=== PATIENT | male | born 1970 | race Caucasian/White ===

== ENCOUNTER 2016-07-17 17:56 | Inpatient (IN) | payer MEDICAID ==
[~2016-07-17] VITALS: Ht 170.2 cm; Wt 84.4 kg
[2016-07-17 17:58] VITALS: BP 113/61; PULSE 95; RESP 17; TEMP 98.1; O2SAT 97
--- NOTE | 2016-07-17 17:58 | NUR ---
Patient to ER bed 3 to gown for evaluation. Side rails up. Report given to Uma RAVI.
--- NOTE | 2016-07-17 17:59 | NUR ---
Seizure precautions in place. Seizure pads applied to gurney. Side rails up.
--- NOTE | 2016-07-17 18:10 | NUR ---
Pt brought by friend, Meghann&Ox4, pt states he trip and fell on saturday since than he has headache , today he was told he lost conciousness (possible seizure),not taking meds at home,skin pink and warm, cap refill <3, VSS, unsteady gait, MD aware.
--- NOTE | 2016-07-17 18:10 | NUR ---
Dr Ruffin at bedside examining patient
[2016-07-17 18:36] LABS: HEMATOCRIT 42.8 % (36-54); HEMOGLOBIN 14.5 g/dL (14.0-18.0); MEAN CORPUSCULAR HEMOGLOBIN 31 pg (27-31); MEAN CORPUSCULAR HGB CONC 34 % (32-36); MEAN CORPUSCULAR VOLUME 90 fL (79.0-98.0); PLATELET COUNT (AUTO) 186 K/uL (130-430); RED BLOOD CELL COUNT(AUTO) 4.76 MIL/uL (4.2-6.2); RED CELL DISTRIBUTION WIDTH 11.9 % (9.0-15.0); WHITE BLOOD COUNT (AUTO) 23.8 K/uL (4.8-10.8)
[2016-07-17 18:44] LABS: ANION GAP 9 (5-15); CALCIUM 8.1 mg/dL (8.4-11.0); CHLORIDE 95 mmol/L (98-107); CREATININE 1.69 mg/dL (0.55-1.30); GLUCOSE 287 mg/dL (70-99); POTASSIUM 3.5 mmol/L (3.5-5.1); SODIUM SERUM 130 mmol/L (136-145); UREA NITROGEN, BLOOD 21 mg/dL (8-21)
[2016-07-17 18:47] LABS: BILIRUBIN,URINE 3+ (NEGATIVE); BLOOD, URINE 2+ (NEGATIVE); CLARITY/URINE HAZY (CLEAR); GLUCOSE,URINE TRACE (NEGATIVE); KETONES,URINE 1+ (NEGATIVE); LEUKOCYTE ESTERASE ,URINE TRACE (NEGATIVE); NITRITE, URINE POSITIVE (NEGATIVE); PROTEIN URINE 2+ (NEGATIVE)
[2016-07-17 18:47] LABS: GFR AFRICAN AMERICAN 56 mL/min (>90)
[2016-07-17 18:49] LABS: ALANINE AMINOTRANSFERASE 45 U/L (12-78); ALBUMIN 3.4 g/dL (3.4-4.8); ASPARTATE AMINOTRANSFERASE 44 U/L (10-37); TOTAL BILIRUBIN 3.1 mg/dL (0.0-1.0); TOTAL PROTEIN, SERUM 7.2 g/dL (6.4-8.3)
[2016-07-17 18:49] LABS: COLOR,URINE ORANGE (YELLOW)
[2016-07-17 18:51] LABS: ACETAMINOPHEN 11 ug/mL (1-30); ALCOHOL, BLOOD < 3 mg/dL (<10); SALICYLATE < 1 mg/dL (3-30)
[2016-07-17 18:59] LABS: ATYPICAL LYMPHOCYTES % 0 % (0-0); BAND % (MANUAL) 16 % (0-6); BASOPHILS % (MANUAL) 0 % (0-2); EOSINOPHILS % (MANUAL) 0 % (0-7); LYMPHOCYTES % (MANUAL) 1 % (20-46); MONOCYTES % (MANUAL) 1 % (0-11)
[2016-07-17] MEDS ORDERED: NACL 0.9% 1,000 ML IV ONE (19:00)
[2016-07-17 19:01] LABS: BACTERIA,URINE MODERATE /HPF (None Seen)
[2016-07-17 19:02] LABS: FINE GRANULAR CASTS,URINE 0-10 /LPF (None Seen); HYALINE CASTS, URINE 0-10 /LPF (None Seen); MUCUS,URINE 2+ /LPF (None Seen)
[2016-07-17 19:04] LABS: METHAMPHETAMINES SCREEN,URINE POSITIVE (NEG <=500); OPIATE, URINE POSITIVE (NEG <=100); URINE AMPHETAMINE POSITIVE (NEG <=500)
[2016-07-17 19:05] LABS: BARBITURATE, URINE NEGATIVE (NEG <=200); BENZODIAZEPINE, URINE NEGATIVE (NEG <=150); CANNABINOID, URINE NEGATIVE (NEG <=50); COCAINE, URINE NEGATIVE (NEG <=150); PHENCYCLIDINE SCREEN,URINE NEGATIVE (NEG <=25); UR TRICYCLIC ANTIDEPRESSANTS NEGATIVE (NEG <=300); URINE METHADONE NEGATIVE (NEG <=200); URINE OXYCODONE SCREEN NEGATIVE (NEG <=100); URINE PROPOXYPHENE SCREEN NEGATIVE (NEG <=300)
--- NOTE | 2016-07-17 19:55 | NUR ---
Patient will be admitted to care of Dr Zayas. Admitted to Medsurg unit. Will go to room 120B. Belongings list completed. Summary report printed. Report given to Claudine Schreiber
[2016-07-17] MEDS ORDERED: cefTRIAXone 1 GM IVPB PREMIX 50 ML IV ONE (20:00)
[2016-07-17] MEDS ORDERED: ACETAMINOPHEN 325 MG TABLET PO PRN (20:45)
[2016-07-17] MEDS ORDERED: LORazepam 2 MG/ML VIAL IVP PRN (20:45)
[2016-07-17] MEDS ORDERED: DEXTROSE 50% JECT 50 ML DISP.SYRIN IVP PRN (20:45)
--- NOTE | 2016-07-17 20:53 | NUR ---
ADMISSION NOTE Received patient from ER via gurney. Patient admitted with diagnosis of [place]set SZ. Patient is awake, alert, oriented X 4. Patient oriented to hospital room, call light, toileting, pain management and safety-teach back done. Patient informed that Claudine will be his nurse and that their room number is 120B. Personal belongings checked and Belongings List documented. Call light within reach.
--- NOTE | 2016-07-17 20:55 | NUR ---
CONSULTATION PAGED REASON FOR CONSULTATION:SEIZURES WAS CONSULT CALLED?Y PERSON WHO WAS NOTIFIED:BRIDGET CONSULTING PHYSICIAN:DARÍO MOREIRA MOTOR HOTEL MANAGER SPECIALTY:NEURO MOTOR HOTEL MANAGER PHONE NUMBER:[phone]
--- NOTE | 2016-07-17 20:55 | NUR ---
INITIAL NOTE Patient resting on the bed. AO x4. Denied of pain. Respiration even and unlabored noted. No acute distress. Skin warm and dry to touch. IV intact to RFA. no redness, no swelling. Friend at bedside. Skin assessment done, skin intact, no skin break down, tattoo on bilateral lower legs, bilateral upper extremities, and anterior upper body. Discussed the safety issue, use call light when need help, and plan of care, verbally understanding. Safety measure maintained. Bed in low position, bed alarm on, padded side rails up. Call light within reached. Will continue to monitor.
[2016-07-17 21:23] VITALS: BP 110/67; PULSE 88; RESP 18; TEMP 98.7; O2SAT 98
[2016-07-17] MEDS: D5NS 1,000 ML IV SCH (21:58)
--- NOTE | 2016-07-17 22:23 | NUR ---
PAGED PAGED STEPHEN GOODMAN AT [phone] SPOKE WITH BETHANY.
[2016-07-17] MEDS: PIPERACILLIN/TAZO 3.375/DEX-IS 50 ML IV SCH (22:30)
--- NOTE | 2016-07-17 22:38 | NUR ---
PATIENT C/O CHILL Patient c/o chill, rjqg=723.8. Cooling measure provided. Patient also c/o on and off chest pain. B/P=123/84, O2 sat 97%RA, no acute distress. No seizure activity noted at this time. Friend at bedside. Call light within reached. Called Dr. Martin. Will continue to monitor.
--- NOTE | 2016-07-17 22:42 | NUR ---
INFORMED STEPHEN BRITTON CHANGED CONDITION OF THE PATIENT Informed Dr. Martin patient with diwn=552.8, only Tylenol order for pain. MD ordered Zosyn 3.375gm IVPB Q6hr and Tylenol for fever. Order read back and okay for MD. Also informed Dr. Martin patient c/o on and off chest pain, asked if he wants to order something for chest pain. MD state"just monitor." Informed patient forgot to tell ER nurse or doctor for the left ankle swollen due to fall. MD stated "Thank you.n Just monitor."
[2016-07-17] MEDS: levETIRAcetam 500 MG in NS 100 ML IV SCH (22:44)
[2016-07-17 22:45] VITALS: BP 123/84; PULSE 103; RESP 20; TEMP 101.8; O2SAT 97
[2016-07-17] MEDS ORDERED: PIPERACILLIN/TAZOBACTAM 3.375 GM/VIAL (ZOSYN) IV ONE (22:48)
[2016-07-17] MEDS: ACETAMINOPHEN 325 MG TABLET PO PRN (22:48)
--- NOTE | 2016-07-17 23:45 | NUR ---
RECHECKED TEMPERATURE Patient' egfo=171.0 at this time. Cooling measure maintained. No acute distress. Denied of chest pain. Safety measure maintained. Call light within reached. Bed in low position, padded side rails up, bed alarm on. Will continue to monitor.
[2016-07-18] MEDS: INSULIN REGULAR, HUMAN 100 UNITS/ML, 10 ML VIAL (novoLIN R) SUBCUT PRN ×5 (00:01→23:52)
[2016-07-18 00:07] VITALS: BP 116/69; PULSE 106; RESP 20; TEMP 100.7
--- NOTE | 2016-07-18 01:10 | NUR ---
ROUND Patient resting on the bed with eyes closed. No acute distress. Respiration even and unlabored noted. Kgzs=067.2, cooling measure maintained. Call light within reached. Safety measure maintained. Continue to monitor.
--- NOTE | 2016-07-18 03:05 | NUR ---
ROUND Patient resting on the bed with eyes closed. Respiration even and unlabored. No acute distress. Temp=99.6, cooling measure maintained. Safety measure maintained. Call light within reached. Continue to monitor.
[2016-07-18 04:18] VITALS: BP 103/49; PULSE 97; RESP 17; TEMP 100.3; O2SAT 98
--- NOTE | 2016-07-18 04:40 | NUR ---
ROUND Patient resting on the bed with eyes closed. No acute distress. Temp=99.2, cooling measure maintained. Safety measure maintained. Call light within reached. Continue to monitor.
[2016-07-18] MEDS: ACETAMINOPHEN 325 MG TABLET PO PRN ×3 (05:50→20:33)
--- NOTE | 2016-07-18 05:50 | NUR ---
TYLENOL GIVEN Patient c/o left ankle pain 07/20, Tylenol 650mg PO given as ordered. No acute distress. Call light within reached. Bed in low position, padded side rails up, bed alarm on. Continue to monitor.
[2016-07-18] MEDS: PIPERACILLIN/TAZO 3.375/DEX-IS 50 ML IV SCH ×3 (05:53→12:19)
[2016-07-18 06:33] LABS: HEMATOCRIT 40.4 % (36-54); HEMOGLOBIN 13.5 g/dL (14.0-18.0); MEAN CORPUSCULAR HEMOGLOBIN 31 pg (27-31); MEAN CORPUSCULAR HGB CONC 34 % (32-36); MEAN CORPUSCULAR VOLUME 91 fL (79.0-98.0); PLATELET COUNT (AUTO) 159 K/uL (130-430); RED BLOOD CELL COUNT(AUTO) 4.44 MIL/uL (4.2-6.2); RED CELL DISTRIBUTION WIDTH 12.1 % (9.0-15.0); WHITE BLOOD COUNT (AUTO) 18.4 K/uL (4.8-10.8)
[2016-07-18 06:53] LABS: ALBUMIN 2.9 g/dL (3.4-4.8); CALCIUM 7.9 mg/dL (8.4-11.0); CREATININE 1.32 mg/dL (0.55-1.30); POTASSIUM 3.4 mmol/L (3.5-5.1); TOTAL BILIRUBIN 2.9 mg/dL (0.0-1.0); TOTAL PROTEIN, SERUM 6.6 g/dL (6.4-8.3)
--- NOTE | 2016-07-18 06:59 | NUR ---
CLOSING NOTE Patient resting on the bed. No acute distress. No seizure activity during shift. Temp=99.0. IV intact, no redness, no swelling. IVF infusing well. All need met. Hourly rounding during shift. Safety measure maintained. Call light within reached. Bed in low position, padded side rails up, bed alarm on. Will endorse to morning shift nurse.
--- NOTE | 2016-07-18 07:56 | NUR ---
WRONG ENTRY SHOULD BE RIGHT ANKLE, NOT LEFT ANKLE
--- NOTE | 2016-07-18 08:00 | NUR ---
am rounds: patient sleeping during rounds. ivf on going at right forearm intact. npo maintained. with bilateral side rails for seizure precaution.bed alarm on. safety measures rendered.
[2016-07-18 08:53] VITALS: BP 107/63; PULSE 87; RESP 19; TEMP 98.1; O2SAT 100
[2016-07-18] MEDS: levETIRAcetam 500 MG in NS 100 ML IV SCH ×2 (08:54→20:33)
[2016-07-18] MEDS: D5NS 1,000 ML IV SCH ×2 (09:07→23:38)
[2016-07-18 09:46] LABS: ATYPICAL LYMPHOCYTES % 0 % (0-0); BAND % (MANUAL) 21 % (0-6); BASOPHILS % (MANUAL) 0 % (0-2); EOSINOPHILS % (MANUAL) 0 % (0-7); LYMPHOCYTES % (MANUAL) 0 % (20-46); MONOCYTES % (MANUAL) 2 % (0-11); WBC MORPHOLOGY AUER RODS SEEN
--- NOTE | 2016-07-18 10:00 | NUR ---
rounds: maintained on npo. afebrile. no seizures noted.
--- NOTE | 2016-07-18 10:32 | NUR ---
CONSULT HEMATOLOGY KATI BRAXTON [phone] S/W RIMMA OFFICE @[id number]
--- NOTE | 2016-07-18 10:48 | NUR ---
CONSULT ID SEPSIS SR MAYDA [phone] S/W CEDRIC OFFICE @ [id number]
--- NOTE | 2016-07-18 12:00 | NUR ---
blood sugar: blood sugar taken,with insulin coverage given per sliding scale.
--- NOTE | 2016-07-18 12:38 | NUR ---
pain meds: c/o headache and due po tylenol given as ordered.
[2016-07-18 12:43] VITALS: BP 110/70; PULSE 66; RESP 18; TEMP 98.9; O2SAT 94
--- NOTE | 2016-07-18 14:24 | NUR ---
rounds: patient sleeping during rounds. stable.
[2016-07-18 16:23] VITALS: BP 114/73; PULSE 71; RESP 16; TEMP 97.8; O2SAT 93
[2016-07-18] MEDS: VANCOMYCIN HCL 1,250 MG in NS 250 ML IV SCH (17:33)
--- NOTE | 2016-07-18 17:44 | NUR ---
blood sugar: blood sugar taken,with insulin coverage given per sliding scale.
--- NOTE | 2016-07-18 18:15 | NUR ---
paged: spoke with dr chan operation shift supervisor for dr beltran and relayed results of right ankle x-ray,no new orders made. dr beltran to f/u in the morning per .
[2016-07-18] MEDS ORDERED: LIDOCAINE 1% 10 MG/ML, 20 ML MDV INJ ONE (18:30)
--- NOTE | 2016-07-18 18:30 | NUR ---
spinal tap: patient consented to spinal tap after dr jessika deleon explained the procedure.time out done at bedside. spinal tap done by dr chaudhary aseptically.se nichols assisted at the bedside.
--- NOTE | 2016-07-18 18:40 | NUR ---
spinal fluid: spinal fluid specimen sent to lab.
--- NOTE | 2016-07-18 19:00 | NUR ---
closing notes: patient stable. patient requested food and md ordered pt can have food after the spinal tap. no bleeding on the site. continue to monitor.
--- NOTE | 2016-07-18 19:30 | NUR ---
INITIAL NOTE Patient resting on the bed. AO x4. Denied of pain. Respiration even and unlabored noted. No acute distress. Skin warm and dry to touch. IV intact to RFA. no redness, no swelling, no drainage. On D5 NS at 100ml/hr, infusing well. Discussed the safety issue, use call light when need help, and plan of care, verbally understanding. Safety measure maintained. Bed in low position, bed alarm on, padded side rails up. Call light within reached. Will continue to monitor.
[2016-07-18 19:53] LABS: CSF APPEARANCE CLEAR (CLEAR); CSF COLOR COLORLESS (COLORLESS); CSF VOLUME 5.5 mL
[2016-07-18 19:54] LABS: CSF GLUCOSE 108 mg/dL (40-70); CSF PROTEIN 42 mg/dL (15-45); CSF TUBE NUMBER 1
[2016-07-18 19:55] LABS: CSF RED BLOOD CELL COUNT 117 /uL (0-0); CSF WHITE BLOOD CELL COUNT 47 /uL (0-5)
[2016-07-18 20:00] VITALS: BP 126/69; PULSE 88; RESP 18; TEMP 100.2; O2SAT 97
[2016-07-18 20:11] LABS: CSF LYMPHOCYTES 1 % (40-60); CSF MONOCYTES 4 % (15-45); CSF NEUTROPHILS 85 % (0-6)
--- NOTE | 2016-07-18 20:33 | NUR ---
TYLENOL GIVEN Tylenol 650mg PO given as order for oobp=344.2 and patient c/o headache 07/20. No acute distress. Cooling measure maintained. Call light within reached. Safety measure maintained. Bed in low position, bed alarm on, padded side rails up. Will continue to monitor.
[2016-07-18] MEDS: cefTRIAXone 1 GM in D5W 50 ML IV SCH (21:18)
--- NOTE | 2016-07-18 22:40 | NUR ---
PATIENT REQUESTED TO CLOSE THE DOOR Per patient requested to close the door. Instructed patient have to call for help when get out of bed. Patient stated "I promise I will call when I get out of bed and not to get out by myself." Safety measure maintained. Bed alarm on, bed in low position, padded side rails up. Continue to monitor.
--- NOTE | 2016-07-18 23:05 | NUR ---
REPORTED THE RESULT OF CSF TO DARÍO GARLAND Reported the result of CSF for gram stain , no organism seen, white blood cells 2+. MD asked the WBC and culture result, told MD still pending. MD with no new order at this time.
--- NOTE | 2016-07-18 23:15 | NUR ---
ROUND Patient resting on the bed. No acute distress. Temp=98.8 at this time. Safety measure maintained. Call light within reached. Continue to monitor.
--- NOTE | 2016-07-19 01:10 | NUR ---
ROUND Patient sleeping comfortable. No acute distress. Respiration even and unlabored. Call light within reached. Safety measure maintained. Will continue to monitor.
[2016-07-19 01:19] VITALS: BP 118/68; PULSE 85; RESP 16; TEMP 98.8; O2SAT 98
--- NOTE | 2016-07-19 03:15 | NUR ---
ROUND Patient sleeping comfortable. No acute distress. Respiration even and unlabored. Call light within reached. Safety measure maintained. Bed in low position, bed alarm on, padded side rails up. Will continue to monitor.
[2016-07-19 04:52] VITALS: BP 128/75; PULSE 76; RESP 18; TEMP 100.3; O2SAT 100
[2016-07-19] MEDS: VANCOMYCIN HCL 1,250 MG in NS 250 ML IV SCH ×2 (06:09→17:33)
[2016-07-19] MEDS: INSULIN REGULAR, HUMAN 100 UNITS/ML, 10 ML VIAL (novoLIN R) SUBCUT PRN ×3 (06:17→17:34)
--- NOTE | 2016-07-19 07:02 | NUR ---
CLOSING NOTE Patient resting on the bed. No acute distress. No seizure activity during shift. IV intact, no redness, no swelling. IVF infusing well. All need met. Hourly rounding during shift. Safety measure maintained. Call light within reached. Bed in low position, padded side rails up, bed alarm on. Will endorse to morning shift nurse.
[2016-07-19 08:00] VITALS: BP 100/68; PULSE 74; RESP 17; TEMP 98.9; O2SAT 98
--- NOTE | 2016-07-19 08:00 | NUR ---
INITIAL NOTES PT IN BED AWAKE, ALERT AND ORIENTED. COMPLAIN OF HEADACHE. WILL MEDICATE. RT ANKLE IS SWOLLEN. IVF INFUSING WELL. AMBULATE TO THE BATHROOM WITH ASSISTANCE. FALL PRECAUTION OBSERVED. ENC. TO CALL AT ALL TIMES. PT VERNALIZE UNDERSTANDING. CALL LIGHT IN REACH. WILL MONITOR.
[2016-07-19] MEDS: ACETAMINOPHEN/CODEINE 300 MG-30 MG TABLET PO PRN ×2 (08:31→18:00)
[2016-07-19] MEDS: levETIRAcetam 500 MG in NS 100 ML IV SCH ×2 (08:32→22:26)
--- NOTE | 2016-07-19 10:00 | NUR ---
assisted to the bathroom and voided. no distress noted. family at bedside. still complaining of headache.
[2016-07-19 12:00] VITALS: BP 120/76; PULSE 84; RESP 16; TEMP 98.2; O2SAT 99
--- NOTE | 2016-07-19 12:00 | NUR ---
ROUNDS EATING LUNCH. FAMILY AT BEDSIDE. HEADACHE BETTER PER PT. DENIES ANY SEIZURE ACTIVITY
[2016-07-19] MEDS: D5NS 1,000 ML IV SCH ×2 (14:37→14:38)
[2016-07-19 16:00] VITALS: BP 127/74; PULSE 74; RESP 17; TEMP 98.1; O2SAT 100
--- NOTE | 2016-07-19 16:14 | NUR ---
rounds assisted to he bathroom. has slight pain at the back of his neck. pain tolerable per pt. enc. to call if pain med is needed, pt verbalize understanding. v/s stable. afebrile.
--- NOTE | 2016-07-19 18:30 | NUR ---
Patient denies any discomfort or headache at this time,friend at bedside .Ate dinner with fair appetite.
--- NOTE | 2016-07-19 18:33 | NUR ---
NOTES EATING DINNER, FAMILY AT BEDSIDE. COMPLAIN OF HEADACHE. MEDICATED WITH TYLENOL WITH CODEINE EARLIER. WILL RE ASSESS. ENC. TO CALL FOR HELP AT ALL TIMES AARON WHEN GETTING OUT OF BED. PT VERBALIZE UNDERSTANDING. NEEDS ATTENDED. WILL ENDORSE
[2016-07-19 20:00] VITALS: BP 127/74; PULSE 69; RESP 18; TEMP 98.6
--- NOTE | 2016-07-19 20:00 | NUR ---
2000 STARTING NOTE SECURITY PROGRAM MANAGER Patient in bed resting comfortably. His friend is at the bed side. He states his pain is 5/10. The nurse explains that his pain medication is not due yet. No other S/S of distress noted. Fall precautions in place. Report received from the day shift nurse.
[2016-07-19] MEDS: cefTRIAXone 1 GM in D5W 50 ML IV SCH (21:00)
--- NOTE | 2016-07-19 22:00 | NUR ---
2200 ROUNDS Patient in bed sleeping. No S/S of any distress noted, no pain. Fall precautions in place.
[2016-07-20] VITALS (7 sets, daily range): BP systolic 107–147; BP diastolic 62–87; PULSE 57–71; RESP 15–18; TEMP 96–98.6; O2SAT 96–99; Ht 170.2 cm; Wt 84.4 kg
--- NOTE | 2016-07-20 | NUR ---
0000 ROUNDS Patient in bed sleeping. The nurse woke him to take his blood sugar. BS level is 201, 4 units Novolin R administered. No S/S of distress or pain noted. Bed in low position, call light within reach.
--- NOTE | 2016-07-20 02:00 | NUR ---
0200 ROUNDS Patient in bed sleeping. No S/S of any distress noted, nor pain. Fall precautions in place.
--- NOTE | 2016-07-20 04:00 | NUR ---
0400 ROUNDS Patient in bed sleeping. No signs of respiratory distress, no seizure activity nor pain. Bed in low position, call light within reach.
[2016-07-20] MEDS: VANCOMYCIN HCL 1,250 MG in NS 250 ML IV SCH ×2 (05:31→20:20)
[2016-07-20] MEDS: INSULIN REGULAR, HUMAN 100 UNITS/ML, 10 ML VIAL (novoLIN R) SUBCUT PRN ×3 (05:36→23:30)
[2016-07-20] MEDS: D5NS 1,000 ML IV SCH ×3 (05:45→22:12)
[2016-07-20] MEDS: ACETAMINOPHEN/CODEINE 300 MG-30 MG TABLET PO PRN ×3 (06:08→17:27)
--- NOTE | 2016-07-20 07:30 | NUR ---
rn notes: patient is aaox 4, afebrile. vss stable. lungs bilaterally clear. abdomen soft and non distended. has iv access on the rt forearm #20. with iv fluids of D5ns at 100cc/hr infusing on well. call lights within reach. safety measures maintained. assists on adls. informed patient to call for assistance.
--- NOTE | 2016-07-20 07:57 | NUR ---
FINAL NOTE - MARINE SERVICE STATION ATTENDANT Patient in bed resting. Patient still nauseous and in pain despite the pain medication PRN (Tylenol w/Codeine) administered around 6 am. No other distress noted. Fall precautions in place. Report given to the day shift nurse Daniela RAVI. The nurse communicated to Daniela about the need of Zofran PRN for nausea since now the patient does not have any PRN medications for nausea/vomiting. Patient's needs met throughout the maintenance supervisor 2nd shift.
--- NOTE | 2016-07-20 08:04 | NUR ---
CALLED ATTENDING MD DR VICK, RE: MEDS FOR N/V. SPOKE TO GEORGI
[2016-07-20] MEDS: levETIRAcetam 500 MG in NS 100 ML IV SCH ×2 (09:39→22:17)
--- NOTE | 2016-07-20 09:40 | NUR ---
due medication given as ordered. keppra iv given at this time. patient said no nausea or vomitting noted. still with headache but its okay. explained to the patient, not due yet for pain meds.
[2016-07-20] MEDS: ONDANSETRON HCL 4 MG/2 ML VIAL IVP PRN ×2 (09:59→17:38)
--- NOTE | 2016-07-20 11:08 | NUR ---
CALLED [facility], DR OHARA, RE: LUMBAR PUNCTURE RESULTS. SPOKE TO CEDRIC
[2016-07-20 14:10] LABS: BASOPHILS % (AUTO) 0.4 % (0.0-2.0); EOSINOPHILS # (AUTO) 0.1 K/uL (0.0-0.4); EOSINOPHILS % (AUTO) 0.7 % (0.0-4.0); HEMATOCRIT 35.8 % (36-54); HEMOGLOBIN 12.2 g/dL (14.0-18.0); LYMPHOCYTES # (AUTO) 1.4 K/uL (1.0-5.5); LYMPHOCYTES % (AUTO) 14.9 % (20.5-51.5); MEAN CORPUSCULAR HEMOGLOBIN 31 pg (27-31); MEAN CORPUSCULAR HGB CONC 34 % (32-36); MEAN CORPUSCULAR VOLUME 91 fL (79.0-98.0); MONOCYTES # (AUTO) 1.1 K/uL (0.0-1.0); MONOCYTES % (AUTO) 11.2 % (1.7-9.3); NEUTROPHILS % (AUTO) 72.8 % (40.0-70.0); PLATELET COUNT (AUTO) 127 K/uL (130-430); RED BLOOD CELL COUNT(AUTO) 3.95 MIL/uL (4.2-6.2); RED CELL DISTRIBUTION WIDTH 11.9 % (9.0-15.0); WHITE BLOOD COUNT (AUTO) 9.6 K/uL (4.8-10.8)
[2016-07-20 14:20] LABS: CALCIUM 8.3 mg/dL (8.4-11.0); CREATININE 0.87 mg/dL (0.55-1.30); POTASSIUM 3.9 mmol/L (3.5-5.1)
--- NOTE | 2016-07-20 14:48 | NUR ---
CALLED CARDIOLOGY CONSULT TO DR LINO, REl: R/O ENDOCARDITIS. SPOKE TO DMITRY
--- NOTE | 2016-07-20 16:00 | NUR ---
assisted to the bathroom had voided and had bowel movement at this time. needs assistance to the bathroom
--- NOTE | 2016-07-20 17:00 | NUR ---
Dr Castrejon covering for Dr Kinsey family coach called and informed the result of the 2 d echo. said will come to see the patient tomorrow.
--- NOTE | 2016-07-20 17:50 | NUR ---
complained of lots of headache. tylenol #3 given po. made comfortable. no dizziness noted.
--- NOTE | 2016-07-20 18:00 | NUR ---
latest bs is 190 mg/dl. coverage given at this time.
--- NOTE | 2016-07-20 19:30 | NUR ---
initial nursing notes: Patient is awake. Patient has IV fluid infusing on the right forearm IV access. Patient denies of having pain at this time.
--- NOTE | 2016-07-20 19:30 | NUR ---
sbar report given to incoming nurse Rk RAVI
--- NOTE | 2016-07-20 21:30 | NUR ---
nursing rounds: Patient watching television. Kept siderails padded and up X 3.
[2016-07-20] MEDS: cefTRIAXone 1 GM in D5W 50 ML IV SCH (23:12)
--- NOTE | 2016-07-20 23:30 | NUR ---
nursing rounds: Patient was talking to Dr. Kinsey. Patient's blood sugar was checked. Insulin coverage provided per sliding scale.
[2016-07-21] VITALS (7 sets, daily range): BP systolic 125–160; BP diastolic 59–74; PULSE 56–80; RESP 17–18; TEMP 97–99.3; O2SAT 92–99
--- NOTE | 2016-07-21 01:30 | NUR ---
nursing rounds: Patient is asleep in bed. Patient has no shortness of breath.
--- NOTE | 2016-07-21 03:30 | NUR ---
nursing rounds: Patient is sleeping in bed. Call light within patient's reach.
[2016-07-21] MEDS: VANCOMYCIN HCL 1,250 MG in NS 250 ML IV SCH ×2 (05:24→17:44)
[2016-07-21] MEDS: D5NS 1,000 ML IV SCH ×2 (05:25→10:56)
--- NOTE | 2016-07-21 05:30 | NUR ---
nursing rounds: Patient calmly resting in bed. Patient has no respiratory distress.
[2016-07-21] MEDS: INSULIN REGULAR, HUMAN 100 UNITS/ML, 10 ML VIAL (novoLIN R) SUBCUT PRN ×3 (06:33→17:46)
[2016-07-21] MEDS: ACETAMINOPHEN/CODEINE 300 MG-30 MG TABLET PO PRN (07:11)
--- NOTE | 2016-07-21 07:35 | NUR ---
rn notesL patient is aaox 4. very sleepy refused to be taken vitals signs at this time. said later. has iv access on the left hand #22 with D5Ns at 100cc/hr infusing on well. call lights within reach. safety measures maintained. on seizure precaution. padded side rails noted. bed in low position. informed patient to call for assistance.
--- NOTE | 2016-07-21 07:42 | NUR ---
closing nursing notes: Patient is awake, alert and oriented X 4. Patient is in no acute respiratory distress. No episodes of fall and no injuries throughout the shift superintendent caustic cresylate. Provided nursing report to incoming morning shift nurse, BREONNA Suarez, at patient's bedside.
--- NOTE | 2016-07-21 09:00 | NUR ---
refused to be bothered for now.
--- NOTE | 2016-07-21 09:40 | NUR ---
rounds made: patient said im okay. no distress noted. just feels very sleepy. no nausea nor vomitting noted
[2016-07-21] MEDS: levETIRAcetam 500 MG in NS 100 ML IV SCH ×2 (09:59→21:31)
--- NOTE | 2016-07-21 10:00 | NUR ---
due medication given as ordered. at this time. keppra iv infused
[2016-07-21] MEDS: ONDANSETRON HCL 4 MG/2 ML VIAL IVP PRN (10:56)
--- NOTE | 2016-07-21 12:00 | NUR ---
latest bs is 185mg/dl. coverage given at this time.
--- NOTE | 2016-07-21 14:00 | NUR ---
rounds: patient is asleep at this time. nor distress noted.
[2016-07-21] MEDS ORDERED: ONDANSETRON HCL 4 MG/2 ML VIAL IVP PRN (16:00)
--- NOTE | 2016-07-21 16:00 | NUR ---
patient is sleeping. no pain nor distress noted.
--- NOTE | 2016-07-21 17:40 | NUR ---
latest bs is 178mg/dl. coverage given at this time. patient is stable. no nausea nor vomitting noted.
--- NOTE | 2016-07-21 18:00 | NUR ---
Vancomycin iv antibiotic given. assists on adls. still eating dinner. requested the kitchen to bring chocolate ice cream.
--- NOTE | 2016-07-21 18:30 | NUR ---
patient has respiratory distress noted. no nausea nor vomitting noted. bed in low position. no fall nor injury noted for 12 hours shift. informed patient to call for assistance. hourly rounding done.
--- NOTE | 2016-07-21 19:35 | NUR ---
sbar report given to incoming nurse Marianne RAVI
--- NOTE | 2016-07-21 20:02 | NUR ---
Opening Note Report received from the day shift RN. Patient is in stable condition. Currently on seizure precautions. Seizure pads are in place. IV is on the LFA running D5NS@100ml/hr. Call light is within reach. Instructed to use it whenever in need of assistance.
--- NOTE | 2016-07-21 22:03 | NUR ---
Rounds Patient is in stable condition. No signs of distress noted. Call light is within reach. Bed alarm is on. Instructed to use call light whenever in need of assistance.
[2016-07-22] VITALS (7 sets, daily range): BP systolic 98–136; BP diastolic 51–78; PULSE 65–86; RESP 16–18; TEMP 97.8–101.6; O2SAT 97–99
[2016-07-22] MEDS: INSULIN REGULAR, HUMAN 100 UNITS/ML, 10 ML VIAL (novoLIN R) SUBCUT PRN ×4 (00:10→17:10)
[2016-07-22] MEDS: NAFCILLIN SODIUM 2 GM in NS 100 ML IV SCH ×4 (00:10→17:07)
--- NOTE | 2016-07-22 00:15 | NUR ---
Rounds Patient is currently sleeping in bed. Call light is within reach. Current blood sugar is 194. Will cover with 2 unit of regular insulin.
[2016-07-22] MEDS: traMADol HCL HCL 50 MG TABLET (ULTRAM) PO PRN (00:20)
--- NOTE | 2016-07-22 02:20 | NUR ---
Rounds Patient is currently resting in bed. Call light is within reach.
[2016-07-22] MEDS: ACETAMINOPHEN 325 MG TABLET PO PRN (03:23)
[2016-07-22] MEDS: D5NS 1,000 ML IV SCH ×3 (03:24→20:58)
--- NOTE | 2016-07-22 03:58 | NUR ---
Rounds Patient stated feeling very cold and was experiencing chills. Current temp is 102.4. Will medicated with Tylenol and reassess.
--- NOTE | 2016-07-22 06:13 | NUR ---
Closing Note Patient is in stable in stable condition. Current blood sugar is 190. Covered with 2 units of Regular insulin. IV is on the LFA running D5NS@100ml/hr. Call light is within reach. Instructed to use it whenever in need of assistance. Will give report to the oncoming nurse.
--- NOTE | 2016-07-22 07:30 | NUR ---
AM ROUNDS: No s/s of distress noted. Will continue to monitor.
[2016-07-22] MEDS: levETIRAcetam 500 MG in NS 100 ML IV SCH ×2 (08:14→20:58)
--- NOTE | 2016-07-22 10:12 | NUR ---
PATIENT RESTING: Patient resting quietly. No acute distress noted. Vital signs within normal range.
--- NOTE | 2016-07-22 12:18 | NUR ---
PATIENT RESTING: Patient resting quietly. No acute distress noted. Vital signs within normal range.
--- NOTE | 2016-07-22 14:10 | NUR ---
PATIENT RESTING: Patient resting quietly. No acute distress noted. Vital signs within normal range.
--- NOTE | 2016-07-22 16:05 | NUR ---
PATIENT RESTING: Patient resting quietly. No acute distress noted. Vital signs within normal range.
--- NOTE | 2016-07-22 18:00 | NUR ---
CLOSING NOTE: All needs met. No change in assessment. Will endorse to NOC shift nurse.
--- NOTE | 2016-07-22 20:00 | NUR ---
PM Round Pt awake alert oriented x 4. Clear speech. Breathing symmetrically, non labored breathing. educated to use call light for assistance. verbalized understanding. Pt educated regarding aura, verbalized understanding. IV on the right FA 20g, D5 NS 100ml/hr. patent. Safety precaution in place. Bed in the lowest positioned, locked. call light within reach. Will continue to monitor
[2016-07-23] VITALS (7 sets, daily range): BP systolic 108–131; BP diastolic 53–63; PULSE 62–92; RESP 16–18; TEMP 97.9–99.9; O2SAT 95–99
--- NOTE | 2016-07-23 | NUR ---
Rounds Pt eye closed. Awoken to light stimuli. Blood sugar level of 250mg/dL. appropriate coverage administered with another licensed nurse. Pt noted went back to sleep soon after. No distress noted by no facial grimacing noted. call light in reach
[2016-07-23] MEDS: NAFCILLIN SODIUM 2 GM in NS 100 ML IV SCH ×4 (00:26→17:56)
[2016-07-23] MEDS: INSULIN REGULAR, HUMAN 100 UNITS/ML, 10 ML VIAL (novoLIN R) SUBCUT PRN ×4 (00:42→17:57)
[2016-07-23] MEDS: traMADol HCL HCL 50 MG TABLET (ULTRAM) PO PRN ×3 (05:35→18:11)
--- NOTE | 2016-07-23 06:20 | NUR ---
Closing note Pt awake alert. Blood sugar level of 195mg/dL. Insulin administered per sliding scale by co-signed by another licensed nurse. Hourly rounds done throughout the shift. Comfort needs met throughout the shift. call light within reach. will endorse AM shift nurse via SBAR method to continue care. educated to use call light for assistance. verbalized understanding. call light in reach.
--- NOTE | 2016-07-23 08:00 | NUR ---
OPENING NOTE: RECEIVED REPORT FROM NIGHT NURSE. PATIENT IS RESTING COMFORTABLY IN BED. NO S/S OF DISTRESS OR SOB. PATIENT IS ALERT AND ORIENTED, ABLE TO EXPRESS NEEDS, AND ASK FOR ASSISTANCE. VITALS SIGNS WNL, ASSESSMENT COMPLETE. IV IS PATENT AND INFUSING. CALL LIGHT IN REACH, BED IN LOWEST POSITION, AND WILL CONTINUE TO MONITOR.
[2016-07-23] MEDS: levETIRAcetam 500 MG in NS 100 ML IV SCH ×2 (08:49→21:38)
--- NOTE | 2016-07-23 10:08 | NUR ---
NOTE: PATIENT IS RESTING COMFORTABLY IN BED. NO S/S OF DISTRESS OR SOB. PATIENT IS ALERT AND ORIENTED, ABLE TO EXPRESS NEEDS, AND ASK FOR ASSISTANCE. CALL LIGHT IN REACH, BED IN LOWEST POSITION, AND WILL CONTINUE TO MONITOR.
[2016-07-23] MEDS: PROMETHAZINE-DM 6.25 MG-15 MG/5 ML UDC PO PRN ×2 (12:47→21:53)
--- NOTE | 2016-07-23 15:33 | NUR ---
ANITA PLANNING Order to transfer to contracted hospital for LUCREC[facility]. Per Dr Martin needs LUCRECIA to r/o Endocarditis, transfer dx: Sepsis, R/O Endocarditis, Viral Meningitis. Called & spoke avi Ramirez @ [facility], ph [phone], & informed. States will work on transfer. Spoke w pt @ bedside, states aware or transfer for LUCRECIA discussed avi Barroso. Agreeable w any contracted hospital. Addendum: 07/23/16 at 1620 by Fabiana Peacock RN Called James @ [facility] to f/u on transfer, [facility] Dr [place] @ [facility] accepted pt waiting for room assignment. Informed leaving @ 1630, states will call nurse to give info, gave direct nsg station#. States to leave ambulance on will call, contracted ambulance: [facility] ph [phone], [facility] ph [phone], or [facility] ph [phone], ambulance auth #[id number]. If none of the ambulance companies can take pt then can use anyone & call & let her know which used. Called & ordered CD. Informed pt's nurse Norris. Updated pt @ bedside, states agreeable. Addendum: 07/23/16 at 1635 by Mara Gallo DP Ordered Radiology CD. Called [facility] [phone] unable to arrange, needs to go thru [facility]. Called [facility] [phone] spoke with Elizabeth who stated does no do BLS transports. Called [facility] spoke with Meenakshi who stated unable to handle hospital transports. Called [facility] [phone] spoke with Svitlana placed BLS transport on will call to [facility] auth#[id number]. Pending bed assignment.
[2016-07-23] MEDS: D5NS 1,000 ML IV SCH ×2 (18:12→21:35)
--- NOTE | 2016-07-23 18:55 | NUR ---
CLOSING NOTE: PATIENT IS RESTING COMFORTABLY IN BED. NO S/S OF DISTRESS OR SOB. PATIENT IS ALERT AND ORIENTED, ABLE TO EXPRESS NEEDS, AND ASK FOR ASSISTANCE. CALL LIGHT IN REACH, BED IN LOWEST POSITION, AND WILL GIVE REPORT TO NIGHT NURSE.
--- NOTE | 2016-07-23 19:35 | NUR ---
PM ASSESSMENT PT. A/OX4, VITAL SIGNS STABLE, NO DISTRESS NOTED, IV ACCESS ON RFA INFILTRATED, WILL RESTART IV LATER, PT. REPORTS NO SEIZURE ACTIVITY AT THIS TIME, SIDERAILS ARE PADDED. UPDATED WITH PLAN OF CARE, ENCOURAGED PT. TO USE CALL LIGHT FOR ASSISTANCE, CALL LIGHT WITHIN REACH, WILL CONTINUE TO MONITOR.
--- NOTE | 2016-07-23 20:00 | NUR ---
IV RESTART NEW IV RESTARTED ON L. WRIST 22G, NO S/S OF INFILTRATION, NOTED WITH GOOD BLOOD RETURN, SALINE LOCKED.
--- NOTE | 2016-07-23 20:45 | NUR ---
[facility] TRANSFER CALL RECEIVED CALL FROM [facility], BED IS NOW AVAILABLE IN ROOM 4103, 4TH FLOOR, MED-SURG UNIT. WILL CALL REPORT TO PHONE # [phone].
--- NOTE | 2016-07-23 21:00 | NUR ---
TRANSPORTATION TRANSPORTATION WAS SET UP WITH [facility] ON WILL CALL, ESTIMATED TIME OF ARRIVAL IS 2430, PT. UPDATED WITH PLAN OF CARE.
--- NOTE | 2016-07-23 21:10 | NUR ---
AMBULANCE PAGED CALLED [facility] AT [phone] SPOKE WITH VASILIY TO ARRANGE FOR AMBULANCE GRAIN PROCESSOR ETA WILL BE 0030 AM.
--- NOTE | 2016-07-23 21:30 | NUR ---
REPORT GIVEN REPORT GIVEN TO BREONNA GAINES OF [facility].
--- NOTE | 2016-07-23 22:30 | NUR ---
RN ROUNDS PT. RESTING QUIETLY, VITAL SIGNS STABLE, NO DISTRESS NOTED, NO S/S OF SEIZURE ACTIVITY, CALL LIGHT WITHIN REACH, WILL CONTINUE TO MONITOR.
--- NOTE | 2016-07-24 | NUR ---
ACCUCHECK BLOOD LONCE=930, 2 UNITS REGULAR INSULIN GIVEN ORDERED, WILL CONTINUE TO MONITOR.
[2016-07-24] MEDS: traMADol HCL HCL 50 MG TABLET (ULTRAM) PO PRN (00:01)
[2016-07-24] MEDS: NAFCILLIN SODIUM 2 GM in NS 100 ML IV SCH ×2 (00:01→05:56)
[2016-07-24] MEDS: INSULIN REGULAR, HUMAN 100 UNITS/ML, 10 ML VIAL (novoLIN R) SUBCUT PRN (00:04)
[2016-07-24 00:43] VITALS: BP 120/47; PULSE 73; RESP 18; TEMP 98.9; O2SAT 100
--- NOTE | 2016-07-24 00:58 | NUR ---
Ambulance transport follow-up called [facility], dialed to follow-up BLS transport to [facility]. s/w Svitlana, stated that there was a mix up regarding a location and Pt name. New ETA will be at 05:30.
--- NOTE | 2016-07-24 01:00 | NUR ---
DELAY IN TRANSFER BREONNA GAINES FROM [facility] NOTIFIED THAT AMBULANCE WILL NOT BE ABLE TO TRANSPORT PT. UNTIL 529 THIS MORNING.
--- NOTE | 2016-07-24 02:06 | NUR ---
ambulance transport follow[place]up [place] [facility] [place], stated that a later ETA will be placed at 06:45.
--- NOTE | 2016-07-24 02:09 | NUR ---
ambulance transport follow-up called [facility] ambulance, dialed . s/w Kb and placed a BLS transport for Pt to [facility] with an ETA at 05:30. called [facility], dialed [phone]. s/w Svitlana and asked her to cancel the 06:45 BLS transport that was placed.
[2016-07-24] MEDS: D5NS 1,000 ML IV SCH (02:45)
--- NOTE | 2016-07-24 03:00 | NUR ---
RN ROUNDS PT. RESTING QUIETLY, VITAL SIGNS STABLE, NO DISTRESS NOTED, DENIES PAIN, NO SEIZURE ACTIVITY NOTED AT THIS TIME, CALL LIGHT WITHIN REACH, WILL CONTINUE TO MONITOR.
[2016-07-24 04:45] VITALS: BP 116/44; PULSE 67; RESP 17; TEMP 99.1; O2SAT 97
--- NOTE | 2016-07-24 06:00 | NUR ---
DISCHARGE REPORT GIVEN TO [facility] FOR TRANSPORT TO [facility]. BELONGINGS CHECKED AND ACCOUNTED FOR, PT. TRANSFERRED SAFELY VIA GURNEY.
== END 2016-07-24 06:05 | disposition short-term general hospital (02) | DRG 720 ==
LOC: SED 17:56 → SMU 19:55
PROVIDERS: ADMIT Internal Medicine Hospice and Palliative Medicine; ATTEND Internal Medicine Hospice and Palliative Medicine
DX: A41.2 Sepsis due to unspecified staphylococcus (principal); I38 Endocarditis, valve unspecified; E11.65 Type 2 diabetes mellitus with hyperglycemia; A87.9 Viral meningitis, unspecified; E87.1 Hypo-osmolality and hyponatremia; E44.1 Mild protein-calorie malnutrition; N39.0 Urinary tract infection, site not specified; G40.909 Epilepsy, unspecified, not intractable, without status epilepticus; N28.9 Disorder of kidney and ureter, unspecified; F17.200 Nicotine dependence, unspecified, uncomplicated; F19.10 Other psychoactive substance abuse, uncomplicated; Z86.61 Personal history of infections of the central nervous system; Z90.49 Acquired absence of other specified parts of digestive tract; Z68.29 Body mass index [BMI] 29.0-29.9, adult
CPT/HCPCS: 36415; 70450-TC; 71010; 80048; 80053; 80307; 81000-TC; 82565-TC; 82947-TC; 82962; 83605; 83880; 84157-TC; 84484; 85007; 85025; 85027; 85048; 85730-TC; 87040-TC; 87070-TC; 87086; 87116; 87186-TC; 87205-TC; 89051-TC; 93005; 93306; 96361; 96365; 99285; G0480; G0481; G0482; J0696; J1815; J1953; J2405; J2543; J3370; J3490; J7030; J7042; J7050; J7060

== ENCOUNTER 2016-08-29 08:11 | Inpatient (IN) | payer MEDICAID ==
[2016-08-29] VITALS (7 sets, daily range): BP systolic 128–155
[~2016-08-29] VITALS: Ht 170.2 cm; Wt 88.9 kg
[2016-08-29 09:23] LABS: BASOPHILS # (AUTO) 0.1 K/uL (0.0-0.2); BASOPHILS % (AUTO) 0.7 % (0.0-2.0); EOSINOPHILS # (AUTO) 0.6 K/uL (0.0-0.4); HEMOGLOBIN 11.1 g/dL (14.0-18.0); LYMPHOCYTES # (AUTO) 1.2 K/uL (1.0-5.5); LYMPHOCYTES % (AUTO) 12.5 % (20.5-51.5); MEAN CORPUSCULAR HEMOGLOBIN 31 pg (27-31); MEAN CORPUSCULAR HGB CONC 34 % (32-36); MEAN CORPUSCULAR VOLUME 90 fL (79.0-98.0); MONOCYTES # (AUTO) 0.9 K/uL (0.0-1.0); MONOCYTES % (AUTO) 9.6 % (1.7-9.3); NEUTROPHILS # (AUTO) 6.6 K/uL (1.8-7.7); NEUTROPHILS % (AUTO) 71.2 % (40.0-70.0); PLATELET COUNT (AUTO) 238 K/uL (130-430); RED BLOOD CELL COUNT(AUTO) 3.65 MIL/uL (4.2-6.2); RED CELL DISTRIBUTION WIDTH 14.6 % (9.0-15.0); WHITE BLOOD COUNT (AUTO) 9.4 K/uL (4.8-10.8)
[2016-08-29 09:30] LABS: INR 1.1 (0.80-1.20)
[2016-08-29] MEDS ORDERED: FUROSEMIDE 40 MG/4 ML VIAL IVP ONE (09:30)
[2016-08-29] MEDS ORDERED: IPRATROPIUM BROM 0.5 MG/2.5 ML VIAL.NEB (ATROVENT) IH ONE (09:30)
[2016-08-29] MEDS ORDERED: ALBUTEROL SULFATE 0.083% 2.5 MG/3 ML VIAL.NEB IH ONE (09:30)
[2016-08-29 09:47] LABS: ABG TOTAL HEMOGLOBIN 11.8 G/dL (12.0-18.0); BLOOD GAS BASE EXCESS -0.1 mmol/L (-3.0-3.0); BLOOD GAS COHb% 0.7 % (0.5-1.5); BLOOD GAS HHB 7.3 % (0.0-6.0); BLOOD GAS PH 7.457 (7.350-7.450); BLOOD O2Hb% 91.7 % (94.0-97.0)
[2016-08-29 09:53] LABS: CALCIUM 8.8 mg/dL (8.4-11.0); CREATININE 0.97 mg/dL (0.55-1.30); POTASSIUM 3.7 mmol/L (3.5-5.1)
[2016-08-29 09:58] LABS: ALBUMIN 3.2 g/dL (3.4-4.8); TOTAL BILIRUBIN 1.3 mg/dL (0.0-1.0); TOTAL PROTEIN, SERUM 7.6 g/dL (6.4-8.3)
[2016-08-29 10:59] LABS: BILIRUBIN,URINE NEGATIVE (NEGATIVE); BLOOD, URINE NEGATIVE (NEGATIVE); CLARITY/URINE CLEAR (CLEAR); COLOR,URINE YELLOW (YELLOW); GLUCOSE,URINE NEGATIVE (NEGATIVE); KETONES,URINE NEGATIVE (NEGATIVE); LEUKOCYTE ESTERASE ,URINE NEGATIVE (NEGATIVE); NITRITE, URINE NEGATIVE (NEGATIVE); PROTEIN URINE NEGATIVE (NEGATIVE); UROBILINOGEN,URINE 0.2 (0.2-1.0)
[2016-08-29] MEDS ORDERED: IOHEXOL 100 ML IV ONE (12:56)
[2016-08-29] MEDS ORDERED: ACETAMINOPHEN 650 MG SUPP.RECT RC PRN (14:15)
[2016-08-29] MEDS ORDERED: CARVEDILOL 6.25 MG TABLET (COREG) PO ONE (14:15)
[2016-08-29] MEDS ORDERED: POTASSIUM CHLORIDE 20 MEQ TAB.PRT.SR PO ONE (14:30)
[2016-08-29] MEDS ORDERED: LISINOPRIL 5 MG TABLET PO ONE (14:30)
[2016-08-29] MEDS ORDERED: FUROSEMIDE 20 MG/2 ML VIAL IVP ONE (14:30)
[2016-08-29] MEDS ORDERED: LEVOFLOXACIN 500 MG/D5W 100 ML IV ONE (15:00)
[2016-08-29] MEDS: IPRATROPIUM/ALBUTEROL SULFATE 3 ML AMPUL.NEB INH SCH ×3 (15:49→23:40)
[2016-08-29] MEDS: VANCOMYCIN HCL 1,500 MG in NS 250 ML IV SCH (20:53)
[2016-08-29] MEDS: FUROSEMIDE 20 MG/2 ML VIAL IVP SCH (20:54)
[2016-08-29] MEDS: CARVEDILOL 6.25 MG TABLET (COREG) PO SCH (20:55)
[2016-08-29] MEDS: LACTOBACILLUS RHAMNOSUS GG 1 CAP CAPSULE PO SCH (20:55)
[2016-08-29] MEDS: POTASSIUM CHLORIDE 20 MEQ TAB.PRT.SR PO SCH (20:55)
[2016-08-29] MEDS: ENOXAPARIN SODIUM 40 MG/0.4 ML SYRINGE SUBCUT SCH (20:56)
[2016-08-29] MEDS: guaiFENesin ER 600 MG TAB PO SCH (23:06)
[2016-08-30] VITALS (7 sets, daily range): BP systolic 104–145
[2016-08-30] MEDS: IPRATROPIUM/ALBUTEROL SULFATE 3 ML AMPUL.NEB INH SCH ×6 (03:30→23:52)
[2016-08-30] MEDS: VANCOMYCIN HCL 1,500 MG in NS 250 ML IV SCH ×2 (06:15→18:20)
[2016-08-30 07:16] LABS: BASOPHILS % (AUTO) 0.4 % (0.0-2.0); EOSINOPHILS # (AUTO) 0.7 K/uL (0.0-0.4); EOSINOPHILS % (AUTO) 7.3 % (0.0-4.0); HEMATOCRIT 34.9 % (36-54); HEMOGLOBIN 11.6 g/dL (14.0-18.0); LYMPHOCYTES # (AUTO) 1.6 K/uL (1.0-5.5); LYMPHOCYTES % (AUTO) 17.3 % (20.5-51.5); MEAN CORPUSCULAR HEMOGLOBIN 31 pg (27-31); MEAN CORPUSCULAR HGB CONC 33 % (32-36); MEAN CORPUSCULAR VOLUME 92 fL (79.0-98.0); MONOCYTES % (AUTO) 10.8 % (1.7-9.3); NEUTROPHILS # (AUTO) 5.9 K/uL (1.8-7.7); NEUTROPHILS % (AUTO) 64.2 % (40.0-70.0); PLATELET COUNT (AUTO) 237 K/uL (130-430); RED BLOOD CELL COUNT(AUTO) 3.79 MIL/uL (4.2-6.2); RED CELL DISTRIBUTION WIDTH 14.7 % (9.0-15.0); WHITE BLOOD COUNT (AUTO) 9.2 K/uL (4.8-10.8)
[2016-08-30 07:54] LABS: ALBUMIN 3.2 g/dL (3.4-4.8); CALCIUM 9.1 mg/dL (8.4-11.0); CREATININE 1.2 mg/dL (0.55-1.30); FREE T4 (FREE THYROXINE) 0.9 ng/dL (0.6-1.6); POTASSIUM 4.2 mmol/L (3.5-5.1); THYROID STIMULATING HORMONE 2.4 uIu/mL (0.34-4.82); TOTAL BILIRUBIN 1.3 mg/dL (0.0-1.0); TOTAL PROTEIN, SERUM 7.7 g/dL (6.4-8.3)
[2016-08-30] MEDS: guaiFENesin ER 600 MG TAB PO SCH ×2 (08:17→20:50)
[2016-08-30] MEDS: LACTOBACILLUS RHAMNOSUS GG 1 CAP CAPSULE PO SCH ×2 (08:17→20:50)
[2016-08-30] MEDS: PROMETHAZINE-DM 6.25 MG-15 MG/5 ML UDC PO PRN (08:17)
[2016-08-30] MEDS: POTASSIUM CHLORIDE 20 MEQ TAB.PRT.SR PO SCH ×2 (08:18→20:50)
[2016-08-30] MEDS: LISINOPRIL 5 MG TABLET PO SCH (08:18)
[2016-08-30] MEDS: CARVEDILOL 6.25 MG TABLET (COREG) PO SCH ×2 (08:18→20:51)
[2016-08-30] MEDS: FUROSEMIDE 20 MG/2 ML VIAL IVP SCH ×2 (08:19→20:52)
[2016-08-30] MEDS: LEVOFLOXACIN 500 MG/D5W 100 ML IV SCH (08:20)
[2016-08-30] MEDS ORDERED: ACETAMINOPHEN 325 MG TABLET PO PRN (17:15)
[2016-08-30] MEDS: ENOXAPARIN SODIUM 40 MG/0.4 ML SYRINGE SUBCUT SCH (20:51)
[2016-08-31] MEDS: IPRATROPIUM/ALBUTEROL SULFATE 3 ML AMPUL.NEB INH SCH ×5 (03:57→23:07)
[2016-08-31 04:08] VITALS: BP_SYST 99
[2016-08-31] MEDS: VANCOMYCIN HCL 1,500 MG in NS 250 ML IV SCH ×2 (06:07→20:03)
[2016-08-31] MEDS: PROMETHAZINE-DM 6.25 MG-15 MG/5 ML UDC PO PRN (06:11)
[2016-08-31] MEDS: FUROSEMIDE 20 MG/2 ML VIAL IVP SCH ×2 (09:10→20:55)
[2016-08-31] MEDS: guaiFENesin ER 600 MG TAB PO SCH ×2 (09:11→20:54)
[2016-08-31] MEDS: POTASSIUM CHLORIDE 20 MEQ TAB.PRT.SR PO SCH ×2 (09:11→20:55)
[2016-08-31] MEDS: CARVEDILOL 6.25 MG TABLET (COREG) PO SCH ×2 (09:11→20:55)
[2016-08-31] MEDS: LACTOBACILLUS RHAMNOSUS GG 1 CAP CAPSULE PO SCH ×2 (09:12→20:54)
[2016-08-31] MEDS: LEVOFLOXACIN 500 MG/D5W 100 ML IV SCH (09:12)
[2016-08-31] MEDS: traMADol HCL HCL 50 MG TABLET (ULTRAM) PO PRN (09:12)
[2016-08-31 09:13] VITALS: BP_SYST 134
[2016-08-31] MEDS: LISINOPRIL 5 MG TABLET PO SCH (09:13)
[2016-08-31 11:39] VITALS: BP_SYST 118
[2016-08-31 15:31] VITALS: BP_SYST 126
[2016-08-31 19:35] VITALS: BP_SYST 152
[2016-08-31] MEDS: ENOXAPARIN SODIUM 40 MG/0.4 ML SYRINGE SUBCUT SCH (20:56)
[2016-09-01] VITALS (7 sets, daily range): BP systolic 102–135
[2016-09-01] MEDS: traMADol HCL HCL 50 MG TABLET (ULTRAM) PO PRN ×2 (02:39→09:45)
[2016-09-01] MEDS: IPRATROPIUM/ALBUTEROL SULFATE 3 ML AMPUL.NEB INH SCH ×6 (03:45→23:00)
[2016-09-01] MEDS: VANCOMYCIN HCL 1,500 MG in NS 250 ML IV SCH ×2 (06:51→19:33)
[2016-09-01 06:55] LABS: BASOPHILS # (AUTO) 0.1 K/uL (0.0-0.2); BASOPHILS % (AUTO) 0.7 % (0.0-2.0); EOSINOPHILS # (AUTO) 1.1 K/uL (0.0-0.4); EOSINOPHILS % (AUTO) 11.5 % (0.0-4.0); HEMATOCRIT 36.1 % (36-54); HEMOGLOBIN 11.6 g/dL (14.0-18.0); LYMPHOCYTES # (AUTO) 1.9 K/uL (1.0-5.5); LYMPHOCYTES % (AUTO) 20.3 % (20.5-51.5); MEAN CORPUSCULAR HEMOGLOBIN 29 pg (27-31); MEAN CORPUSCULAR HGB CONC 32 % (32-36); MEAN CORPUSCULAR VOLUME 92 fL (79.0-98.0); MONOCYTES # (AUTO) 0.9 K/uL (0.0-1.0); MONOCYTES % (AUTO) 9.9 % (1.7-9.3); NEUTROPHILS # (AUTO) 5.2 K/uL (1.8-7.7); NEUTROPHILS % (AUTO) 57.6 % (40.0-70.0); RED BLOOD CELL COUNT(AUTO) 3.93 MIL/uL (4.2-6.2); RED CELL DISTRIBUTION WIDTH 14.4 % (9.0-15.0); WHITE BLOOD COUNT (AUTO) 9.2 K/uL (4.8-10.8)
[2016-09-01 07:13] LABS: CALCIUM 9.2 mg/dL (8.4-11.0); CREATININE 1.29 mg/dL (0.55-1.30); POTASSIUM 4.5 mmol/L (3.5-5.1)
[2016-09-01 07:42] LABS: PLATELET COUNT (AUTO) 299 K/uL (130-430)
[2016-09-01] MEDS: POTASSIUM CHLORIDE 20 MEQ TAB.PRT.SR PO SCH ×2 (09:44→20:42)
[2016-09-01] MEDS: LACTOBACILLUS RHAMNOSUS GG 1 CAP CAPSULE PO SCH ×2 (09:44→20:42)
[2016-09-01] MEDS: CARVEDILOL 6.25 MG TABLET (COREG) PO SCH ×2 (09:44→20:42)
[2016-09-01] MEDS: LEVOFLOXACIN 500 MG/D5W 100 ML IV SCH (09:45)
[2016-09-01] MEDS: guaiFENesin ER 600 MG TAB PO SCH ×2 (09:45→20:42)
[2016-09-01] MEDS: LISINOPRIL 5 MG TABLET PO SCH (09:45)
[2016-09-01] MEDS: FUROSEMIDE 20 MG/2 ML VIAL IVP SCH (09:46)
[2016-09-01] MEDS: FUROSEMIDE 20 MG TABLET PO SCH (18:25)
[2016-09-01] MEDS: ENOXAPARIN SODIUM 40 MG/0.4 ML SYRINGE SUBCUT SCH (20:43)
[2016-09-02 00:25] VITALS: BP_SYST 118
[2016-09-02] MEDS: IPRATROPIUM/ALBUTEROL SULFATE 3 ML AMPUL.NEB INH SCH ×6 (03:30→23:26)
[2016-09-02 04:17] VITALS: BP_SYST 121
[2016-09-02] MEDS: VANCOMYCIN HCL 1,500 MG in NS 250 ML IV SCH ×2 (06:08→20:33)
[2016-09-02 08:14] VITALS: BP_SYST 128
[2016-09-02 11:31] VITALS: BP_SYST 118
[2016-09-02] MEDS: LISINOPRIL 5 MG TABLET PO SCH (12:05)
[2016-09-02] MEDS: LACTOBACILLUS RHAMNOSUS GG 1 CAP CAPSULE PO SCH ×2 (12:05→20:34)
[2016-09-02] MEDS: LEVOFLOXACIN 500 MG/D5W 100 ML IV SCH (12:06)
[2016-09-02] MEDS: POTASSIUM CHLORIDE 20 MEQ TAB.PRT.SR PO SCH ×2 (12:06→20:34)
[2016-09-02] MEDS: guaiFENesin ER 600 MG TAB PO SCH ×2 (12:06→20:34)
[2016-09-02] MEDS: FUROSEMIDE 20 MG TABLET PO SCH (12:06)
[2016-09-02] MEDS: CARVEDILOL 6.25 MG TABLET (COREG) PO SCH ×2 (12:07→20:34)
[2016-09-02 15:32] VITALS: BP_SYST 123
[2016-09-02 20:01] VITALS: BP_SYST 125
[2016-09-02] MEDS: ENOXAPARIN SODIUM 40 MG/0.4 ML SYRINGE SUBCUT SCH (20:33)
[2016-09-02] MEDS: traMADol HCL HCL 50 MG TABLET (ULTRAM) PO PRN (20:36)
[2016-09-03 00:16] VITALS: BP_SYST 100
[2016-09-03] MEDS: IPRATROPIUM/ALBUTEROL SULFATE 3 ML AMPUL.NEB INH SCH ×4 (03:14→15:00)
[2016-09-03 04:36] VITALS: BP_SYST 100
[2016-09-03] MEDS: VANCOMYCIN HCL 1,500 MG in NS 250 ML IV SCH (06:29)
[2016-09-03 06:58] LABS: BASOPHILS # (AUTO) 0.1 K/uL (0.0-0.2); BASOPHILS % (AUTO) 0.8 % (0.0-2.0); EOSINOPHILS # (AUTO) 0.7 K/uL (0.0-0.4); EOSINOPHILS % (AUTO) 9.3 % (0.0-4.0); HEMATOCRIT 34.7 % (36-54); LYMPHOCYTES # (AUTO) 1.7 K/uL (1.0-5.5); LYMPHOCYTES % (AUTO) 22.6 % (20.5-51.5); MEAN CORPUSCULAR HEMOGLOBIN 31 pg (27-31); MEAN CORPUSCULAR HGB CONC 35 % (32-36); MEAN CORPUSCULAR VOLUME 90 fL (79.0-98.0); MONOCYTES # (AUTO) 0.9 K/uL (0.0-1.0); MONOCYTES % (AUTO) 11.8 % (1.7-9.3); NEUTROPHILS % (AUTO) 55.5 % (40.0-70.0); PLATELET COUNT (AUTO) 284 K/uL (130-430); RED BLOOD CELL COUNT(AUTO) 3.85 MIL/uL (4.2-6.2); RED CELL DISTRIBUTION WIDTH 14.2 % (9.0-15.0); WHITE BLOOD COUNT (AUTO) 7.4 K/uL (4.8-10.8)
[2016-09-03 07:27] LABS: CALCIUM 9.2 mg/dL (8.4-11.0); CREATININE 1.13 mg/dL (0.55-1.30); POTASSIUM 4.7 mmol/L (3.5-5.1)
[2016-09-03 08:19] VITALS: BP_SYST 127
[2016-09-03] MEDS: LACTOBACILLUS RHAMNOSUS GG 1 CAP CAPSULE PO SCH (09:52)
[2016-09-03] MEDS: LISINOPRIL 5 MG TABLET PO SCH (09:53)
[2016-09-03] MEDS: CARVEDILOL 6.25 MG TABLET (COREG) PO SCH (09:54)
[2016-09-03] MEDS: LEVOFLOXACIN 500 MG/D5W 100 ML IV SCH (09:55)
[2016-09-03] MEDS: guaiFENesin ER 600 MG TAB PO SCH (09:55)
[2016-09-03] MEDS: POTASSIUM CHLORIDE 20 MEQ TAB.PRT.SR PO SCH (09:55)
[2016-09-03] MEDS: FUROSEMIDE 20 MG TABLET PO SCH (09:57)
[2016-09-03 14:29] VITALS: BP_SYST 134
== END 2016-09-03 16:45 | disposition home or self-care (01) | DRG 720 ==
LOC: SED 08:11 → STU 10:12 → SMU 08-30 13:00
PROVIDERS: ADMIT Internal Medicine; ATTEND Internal Medicine
DX: A41.2 Sepsis due to unspecified staphylococcus (principal); I50.41 Acute combined systolic (congestive) and diastolic (congestive) heart failure; J18.9 Pneumonia, unspecified organism; I11.0 Hypertensive heart disease with heart failure; J44.0 Chronic obstructive pulmonary disease with (acute) lower respiratory infection; E44.1 Mild protein-calorie malnutrition; E11.9 Type 2 diabetes mellitus without complications; D64.9 Anemia, unspecified; E78.5 Hyperlipidemia, unspecified; F17.200 Nicotine dependence, unspecified, uncomplicated; G40.909 Epilepsy, unspecified, not intractable, without status epilepticus; I35.1 Nonrheumatic aortic (valve) insufficiency; J44.1 Chronic obstructive pulmonary disease with (acute) exacerbation; Z83.3 Family history of diabetes mellitus; Z90.49 Acquired absence of other specified parts of digestive tract; Z86.61 Personal history of infections of the central nervous system; Z68.30 Body mass index [BMI] 30.0-30.9, adult; E66.9 Obesity, unspecified
CPT/HCPCS: 36415; 36600; 71010; 71020-TC; 71260-TC; 80048; 80053; 80202-TC; 81003; 82803-TC; 82962; 83605; 83735-TC; 83880; 84439; 84443-TC; 84484; 85025; 85379; 85610-TC; 85651-TC; 85730-TC; 87040-TC; 87070-TC; 87081; 87205-TC; 93005; 93306; 94640; 94760; 96374; 99285; J1650; J1940; J1956; J3370; J7050; Q9967

== ENCOUNTER 2020-05-23 17:56 | Emergency (ER) | payer MEDICAID, SELFPAY ==
[~2020-05-23] VITALS: Ht 170.2 cm; Wt 97.5 kg
[2020-05-23 18:28] VITALS: BP_SYST 152
[2020-05-23 19:39] VITALS: BP_SYST 152
== END 2020-05-23 19:39 | disposition home or self-care (01) ==
LOC: SED 17:56
DX: U07.1 COVID-19 (principal); I10 Essential (primary) hypertension; E11.9 Type 2 diabetes mellitus without complications
CPT/HCPCS: 71045; 87426; 99284; U0003; 36415

== ENCOUNTER 2022-04-17 21:08 | Emergency (ER) | payer OTHER, MEDICAID ==
[~2022-04-17] VITALS: Ht 170.2 cm; Wt 87.5 kg
[2022-04-17 21:46] VITALS: BP_SYST 140
--- NOTE | 2022-04-17 21:56 | NUR ---
Patient triaged and placed in waiting room. VS checked and patient appears in no acute distress at this time. Accompanied by self, awaiting available bed, and MD notified of need for MSE.
[2022-04-17] MEDS ORDERED: METF-518 PO (22:19)
[2022-04-17] MEDS ORDERED: LIP10 PO (22:20)
[2022-04-17] MEDS ORDERED: LOSA25TA3 PO (22:20)
[2022-04-17] MEDS ORDERED: CYCL10TA24 PO (22:21)
[2022-04-17] MEDS ORDERED: IBUP-1970 PO (22:21)
--- NOTE | 2022-04-17 23:27 | NUR ---
ER in triage examining patient.
[2022-04-17] MEDS ORDERED: LIDO1ADH77 TD (23:53)
[2022-04-17] MEDS ORDERED: NEU300 PO (23:53)
[2022-04-17] MEDS ORDERED: ACET-2634 PO (23:53)
[2022-04-18] MEDS: ACETAMINOPHEN 500 MG TABLET PO ONE (00:15)
[2022-04-18] MEDS: KETOROLAC TROMETHAMINE 60 MG/2 ML VIAL IM ONE (00:15)
[2022-04-18 00:57] VITALS: BP_SYST 132
--- NOTE | 2022-04-18 00:57 | NUR ---
Patient given written and verbal discharge instructions and verbalizes understanding. ER MD discussed with patient the results and treatment provided. Patient in stable condition. ID arm band removed. Rx of NEURONTIN, LIDOCAINE, AND TYLENOL given. Patient educated on pain management and to follow up with PMD. Pain Scale 0/10 Opportunity for questions provided and answered. Medication side effect fact sheet provided.
== END 2022-04-18 00:57 | disposition home or self-care (01) ==
LOC: SED 21:08
DX: M54.32 Sciatica, left side (principal); M54.50 Low back pain, unspecified; M79.605 Pain in left leg; E11.9 Type 2 diabetes mellitus without complications; I11.0 Hypertensive heart disease with heart failure; I50.9 Heart failure, unspecified; Z79.899 Other long term (current) drug therapy
CPT/HCPCS: 99283; 96372; J1885

== ENCOUNTER 2022-04-19 13:50 | Outpatient (CLI) | payer OTHER, MEDICAID ==
[~2022-04-19 13:50] MED LIST: ACET-2634 PO; CYCL10TA24 PO; IBUP-1970 PO; LIDO1ADH77 TD; LIP10 PO; LOSA25TA3 PO; METF-518 PO; NEU300 PO
== END 2022-04-19 17:11 | disposition home or self-care (01) ==
LOC: SRD 13:50
PROVIDERS: ATTEND Family Medicine
DX: M47.816 Spondylosis without myelopathy or radiculopathy, lumbar region (principal); M25.78 Osteophyte, vertebrae; M51.36 Other intervertebral disc degeneration, lumbar region; M54.50 Low back pain, unspecified
CPT/HCPCS: 72110

== ENCOUNTER 2023-03-11 11:51 | Outpatient (CLI) | payer OTHER, MEDICAID ==
[~2023-03-11 11:51] MED LIST changes: +LOSA-412 PO; -LOSA25TA3 PO
== END 2023-03-11 21:02 | disposition home or self-care (01) ==
LOC: SRD 11:51
PROVIDERS: ATTEND Family Medicine
DX: J40 Bronchitis, not specified as acute or chronic (principal); M47.814 Spondylosis without myelopathy or radiculopathy, thoracic region; Z95.1 Presence of aortocoronary bypass graft
CPT/HCPCS: 71046-TC

== ENCOUNTER 2023-12-23 05:59 | Emergency (ER) | payer OTHER, MEDICAID ==
[~2023-12-23] VITALS: Ht 170.2 cm; Wt 85.7 kg
[~2023-12-23 05:59] MED LIST changes: +ATOR-449 PO; -LIP10 PO
[2023-12-23 06:08] VITALS: BP_SYST 134; PULSE 82; RESP 18; TEMP 98.3
[2023-12-23] MEDS: DIPHTH,PERTUSS(ACELL),TET VAC 0.5 ML VIAL (Tdap) I.M. ONE (06:43)
[2023-12-23 07:20] VITALS: BP_SYST 107; PULSE 70; RESP 18; TEMP 98; O2SAT 97
== END 2023-12-23 07:32 | disposition home or self-care (01) ==
LOC: SED 05:59
DX: S91.311A Laceration without foreign body, right foot, initial encounter (principal); E11.9 Type 2 diabetes mellitus without complications; I10 Essential (primary) hypertension; W22.8XXA Striking against or struck by other objects, initial encounter; Y93.89 Activity, other specified; Y92.89 Other specified places as the place of occurrence of the external cause; Y99.8 Other external cause status
CPT/HCPCS: 90715; 99283